=== PATIENT | female | born 1995 | race Caucasian/White ===

== ENCOUNTER 2022-04-22 21:40 | Emergency (ER) | payer MEDICAID ==
[~2022-04-22] VITALS: Ht 154.9 cm; Wt 76.0 kg
[2022-04-23] MEDS ORDERED: ACETAMINOPHEN WITH CODEINE 300/30MG TABLET PO ONE (00:15)
[2022-04-23 00:19] VITALS: BP 129/74
== END 2022-04-23 03:25 | disposition home or self-care (01) ==
LOC: ER 21:40
DX: M25.531 Pain in right wrist (principal); E11.9 Type 2 diabetes mellitus without complications; E78.00 Pure hypercholesterolemia, unspecified; I10 Essential (primary) hypertension
CPT/HCPCS: 29125; 73090; 73110; 99284